=== PATIENT | male | born 1955 | race African-American/Black ===

== ENCOUNTER 2021-11-26 09:51 | Emergency (ER) | payer MEDICARE, MEDICAID ==
[~2021-11-26] VITALS: Ht 162.6 cm; Wt 100.0 kg
[2021-11-26] MEDS ORDERED: HYDROCODONE/ACETAMINOPHEN 5/325MG TABLET PO ONE (10:15)
[2021-11-26] MEDS ORDERED: ONDANSETRON 4MG ODT PO ONE (10:15)
[2021-11-26 10:46] VITALS: BP 128/84
[2021-11-26] MEDS ORDERED: METH-773 MT (10:51)
== END 2021-11-26 11:12 | disposition home or self-care (01) ==
LOC: ER 10:17
DX: M54.41 Lumbago with sciatica, right side (principal); I10 Essential (primary) hypertension; J45.909 Unspecified asthma, uncomplicated
CPT/HCPCS: 72100; 73502; 99284; Q0162